=== PATIENT | female | born 1940 | race Caucasian/White ===

== ENCOUNTER → 2017-08-17 | Outpatient (CLI) | payer MEDICARE, OTHER ==
[~2017-08-17] MED LIST: ALEN1TAB3 PO; ASPI-1471 PO; BLOO-1775 MC; BLOO1STR16 MC; CALC600T72 PO; CIPR-212 PO; COMODPT OD; COMODPT OU; CYAN25004 PO; DAR100 PO; ESC10 PO; ESCI10TA8 PO; FAM20 PO; FERR325T24 PO; FLU45SYR25 IM ONLY; FLU60VIA29 IM; GLIM2TAB43 PO; GOLYTE PO; LANC-1295 MC; LEV500 PO; LOR5/325 PO; MECL12.5 PO; MECL25TA9 PO; METF-420 PO; MOX400 PO; MULT-1350 PO; NITR-105 PO; OMEG-28 PO; PHEN118S5 PO; PHENA200 PO; PIOG45TA18 PO; PNEU0.5D3 IM; PROM-110 PO; ROSU10TA13 PO; ROSU20TA23 PO; SIMV-44 PO; SITA1TAB17 PO; SITA1TBM4 PO; VAL80 PO; VALS160T22 PO
== END ==
LOC: SPU 09:21
PROVIDERS: ATTEND Emergency Medicine
DX: E11.9 Type 2 diabetes mellitus without complications (principal)
CPT/HCPCS: 36415; 83036

== ENCOUNTER → 2017-09-14 | Outpatient (CLI) | payer MEDICARE, OTHER ==
[2017-09-14 11:50] LABS: LDL CHOLESTEROL 46 mg/dl
== END ==
LOC: LAB 11:01
PROVIDERS: ATTEND Internal Medicine
DX: I35.0 Nonrheumatic aortic (valve) stenosis (principal); I51.7 Cardiomegaly; I51.9 Heart disease, unspecified; E78.00 Pure hypercholesterolemia, unspecified
CPT/HCPCS: 36415; 82040; 82247; 82310; 82374; 82435; 82465; 82565; 82947; 83718; 84075; 84132; 84155; 84295; 84450; 84460; 84478; 84520

== ENCOUNTER 2017-09-22 12:44 | Outpatient (RCR) | payer MEDICARE, OTHER ==
[2017-07-13 09:22] VITALS: BP 124/70
[2017-08-17 09:27] VITALS: BP 118/66
[2017-08-17] MEDS: CYANOCOBALAMIN 1000MCG/ML VIAL IM ONLY PRN (09:37)
[2017-09-18 08:55] VITALS: BP 136/70
[2017-09-18 09:14] LABS: PLATELET COUNT, AUTOMATED 293 K/uL (150-450)
[~2017-09-22 12:44] MED LIST changes: +CYANOCOBALAMIN 1000MCG/ML VIAL IM ONLY ONE
[2017-09-22 12:59] VITALS: BP 135/71
[2017-09-22] MEDS: CYANOCOBALAMIN 1000MCG/ML VIAL IM ONLY PRN (13:06)
--- NOTE | 2017-09-25 03:37 | ONCOLOGY FOLLOW UP NOTE ---
EVENT DATE: September 22, 2017 DIAGNOSES 1. Iron deficiency anemia. 2. Vitamin B12 deficiency. 3. Hypertension. 4. Type 2 diabetes. CHIEF COMPLAINT The patient is here today for followup of her iron deficiency and vitamin B12 deficiency with anemia. HEMATOLOGY HISTORY Patient is a 77-year-old female who was recently diagnosed with anemia. She has been seen by Dr. Caputo who did a thorough workup for her anemia, which showed low vitamin B12 at 154 and iron deficiency anemia with serum ferritin 10 , serum iron 23, TIBC 454 and iron saturation 5.1%. Her serum folate was normal at 20.4. Her CBC showed a white count of 5.1, hemoglobin 10.1, hematocrit 31.1, platelets 338,000 and MCV 78.8. Patient has been referred to Dr. Chavez, who did a colonoscopy and EGD, done on November 30, 2016. Her EGD and colonoscopy did not reveal any polyps or a bleeding source in the gastrointestinal tract. 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 Duodenal biopsy and GE junction biopsy without diagnostic abnormality. Patient started treatment with oral iron and oral vitamin B12 supplement, but since she started on oral iron, although she is using only one pill a day, the patient has had about four bowel movements daily since then. Repeat CBC showed white count 5.2, hemoglobin 10.7, hematocrit 33.3, platelets 374,000. Anti-intrinsic factor antibody and antiparietal cell antibody both came back negative. Celiac disease antigen screen came back normal. HISTORY OF PRESENT ILLNESS Patient is here today for followup of her anemia due to iron deficiency and vitamin B12 deficiency. Louann is doing fine currently. She was diagnosed with aortic valve sclerosis, and the patient is going to see her barn operator very soon. She has occasional diarrhea. Other than that, she is doing well. PAST MEDICAL HISTORY 1. Hyperlipidemia. 2. Hypertension. 3. Aortic stenosis. 4. Osteopenia. 5. Anxiety/depression. 6. Type 2 diabetes. PAST SURGICAL HISTORY 1. She had hysterectomy, but her ovaries are intact. 2. She had colon cancer for pre-cancer polyps in 1940s. 3. She had cholecystectomy. FAMILY HISTORY Mother had multiple myeloma. SOCIAL HISTORY Patient is with two children. 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 Denies any abuse of tobacco, alcohol or drugs. CURRENT MEDICATIONS 1. Rosuvastatin calcium 10 mg two tablets daily. 2. Aspirin 81 mg daily. 3. Escitalopram 10 mg daily. 4. Diovan 160 mg daily. 5. Janumet one tablet twice daily. 6. Combigan eyedrops one drop twice daily. ALLERGIES No known drug allergies. REVIEW OF SYSTEMS CONSTITUTIONAL: No appetite or weight change. No fever, chills or sweating. No recent infection. HEENT: Ears: No tinnitus or hearing problem. Nose: No nasal discharge or epistaxis. Throat: No sore throat or mouth ulcers. Eyes: No diplopia or visual changes. RESPIRATORY: No shortness of breath. Some cough with little phlegm. No expectoration or hemoptysis. CARDIOVASCULAR: No chest pain, orthopnea, or paroxysmal nocturnal dyspnea (PND) . No edema. No palpitations. GASTROINTESTINAL: She has occasional diarrhea. GENITOURINARY: No hematuria or dysuria. MUSCULOSKELETAL: She has been pain around the ankle occasionally. NEUROLOGICAL: No tingling or numbness in the hands or feet. No headaches or convulsions. HEMATOLOGIC/LYMPHATIC: No bleeding or easy bruising. No weakness or fatigue. No enlarged lymph nodes. SKIN: No skin rash or lumps. PSYCHIATRIC: No anxiety or depression. PHYSICAL EXAMINATION GENERAL: Looks stable. Well-developed, well-nourished, and in no acute distress. VITAL SIGNS: Blood pressure 135/71, pulse 75 per minute, respirations 17 per minute, temperature 97.2, pulse ox 97% on room air. HEENT: Head: Atraumatic. No sinus tenderness to palpation. Eyes: No icterus or conjunctivitis. Mouth and throat: No oral thrush or mucositis. NECK: Supple. No cervical or supraclavicular lymphadenopathy. LUNGS: Clear to auscultation and percussion bilaterally. HEART: Regular rate and rhythm. No gallops, murmurs, clicks or rubs. ABDOMEN: Soft and lax. No tenderness. No hepatosplenomegaly. No masses. EXTREMITIES: No cyanosis, clubbing or edema. LYMPHATICS: No peripheral lymphadenopathy. NEUROLOGICAL: Conscious, alert and oriented times three. No focal motor or sensory deficits. PSYCHIATRIC: Mood and affect appear normal. SKIN: No skin rash, bruise or purpuric eruption. DIAGNOSTIC DATA CBC showed a white count of 4.8, hemoglobin 12.6, hematocrit 36.2, platelets 293 ,000. Chem panel showed sodium 136, blood sugar 176, AST 50, ALT 66. Serum ferritin 99, TIBC 275, iron saturation 36%, and ferritin 69. ASSESSMENT 1. Iron deficiency anemia with normal colonoscopy and EGD without bleeding source. Celiac panel came back negative. Patient was unable to tolerate oral iron supplementation and for this reason she received Injectafer 750 mg weekly for two weeks in December 2016 with resolution of her iron deficiency. Her current iron studies are totally normal. There is no indication of any intervention at the moment. The patient will return in three months with CBC, iron studies with ferritin at that time. 2. Vitamin B12 deficiency. Patient's initial B12 level was 154. Patient currently on vitamin B12 supplement 1000 mcg every month. I will continue the same. Patient was advised to continue that the rest of her life. 2. Hypertension, on treatment. 3. Type 2 diabetes, on treatment. PLAN 1. Continued followup. 2. The patient to return in three months with CBC, iron studies with ferritin. 3. Continue B12 shots 1000 mcg every month. 4. Patient is to contact us for any new concerns or complaints. DEBO
== END 2017-10-10 ==
LOC: SPU 12:44
PROVIDERS: ATTEND Internal Medicine Hematology
DX: D50.9 Iron deficiency anemia, unspecified (principal); E55.9 Vitamin D deficiency, unspecified; D51.9 Vitamin B12 deficiency anemia, unspecified
CPT/HCPCS: 36415; 82728; 83036; 83540; 83550; 85025; 96372; G0463; J3420; 82040; 82247; 82310; 82374; 82435; 82565; 82947; 84075; 84132; 84155; 84295; 84450; 84460; 84520; 99212

== ENCOUNTER 2017-10-19 19:11 | Emergency (ER) | payer MEDICARE, OTHER ==
[~2017-10-19 19:11] MED LIST changes: +CLOP75TA PO; -CYANOCOBALAMIN 1000MCG/ML VIAL IM ONLY ONE
--- NOTE | 2017-10-19 19:17 | ER Report ---
History and Physical Time Seen By MD: 19:16 HPI/ROS CHIEF COMPLAINT: palpitations, irregular heart beats. HISTORY OF PRESENT ILLNESS: This is a 77 year old female. She has a history of a recent valvular repair, done by intravascular access. Since then she has been having noticeable palpitations. She has never really noted them previously. These are very disconcerting and she is worried that her heart is going to stop. She is here with a friend who suggested that she come here for evaluation , although she was thinking that they needed to go to [facility] for evaluation. She has no chest pain. She has no shortness of breath. She has started Plavix in addition to aspirin. She is taking Diovan from blood pressure. She has had a couple of episodes of dizziness which were very brief over the last week. She has no recent illness, fevers/chills, nausea or vomiting. No headache or vision changes. No problems with bowels or urination. No abdominal pain. Allergies: Coded Allergies: codeine (Verified Allergy, Intermediate, NAUSEA, 11/23/16) Home Meds Active Scripts Metoprolol Tartrate (METOPROLOL TARTRATE) 25 Mg Tablet, 1 TAB PO BID, #30 TAB 0 Refills Prov:ABHINAV NEFF MD 10/19/17 Glimepiride (GLIMEPIRIDE) 2 Mg Tablet, 1 TAB PO QDAY, #90 TAB 4 Refills Prov:PAULINO RAMOS MD 08/29/17 Sitagliptin Phos/Metformin Hcl (JANUMET 50-1,000 MG TABLET) 1 Each Tablet, 1 TAB PO BID, #180 TAB 4 Refills Prov:PAULINO RAMOS MD 08/29/17 Escitalopram Oxalate (ESCITALOPRAM OXALATE) 10 Mg Tablet, 10 MG PO QDAY, #90 TAB 1 Refill Prov:PAULINO RAMOS MD 06/26/17 Rosuvastatin Calcium (CRESTOR) 20 Mg Tablet, 1 TAB PO QDAY, #90 TAB 2 Refills Prov:PAULINO RAMOS MD 03/29/17 Blood Sugar Diagnostic (FREESTYLE LITE TEST STRIPS) 1 Each Strip, 1 EACH MC TID , #100 STRIP 12 Refills Test glucose TID. Test fasting glucose qam. Test once in the afternoon and again in the evening. Prov:PAULINO RAMOS MD 01/04/17 Lancets (FREESTYLE LANCETS) 1 Each Each, EACH MC TID, #100 12 Refills Test TID. Test fasting sugar every morning. Test blood sugar in the afternoon and again in the evening. Prov:PAULINO RAMOS MD 01/04/17 Blood-Glucose Meter (FREESTYLE LITE METER) 1 Each Kit, EACH MC TID, #1 Test glucose TID. Test fasting every morning. Test again in the afternoon and evening. Prov:PAULINO RAMOS MD 01/04/17 Valsartan (DIOVAN) 160 Mg Tablet, 1 TAB PO DAILY, #90 TAB 4 Refills Prov:PAULINO RAMOS MD 12/28/16 Brimonidine/Timolol (COMBIGAN EYE DROPS) 1 Drop Drop, 1 DROP OU BID, #0 DROP Prov:PAULINO RAMOS MD 03/03/16 Reported Medications Loperamide Hcl (LOPERAMIDE) 2 Mg Tablet, 4 MG PO 10/19/17 Clopidogrel Bisulfate (CLOPIDOGREL) 75 Mg Tablet, 1 TAB PO QDAY, TAB 10/16/17 Aspirin (ASPIR 81) 81 Mg Tablet.dr, 1 TAB PO QDAY, TAB 11/07/16 Reviewed Nurses Notes: Yes Hx Smoking: No Smoking Status: Never Smoker Hx Alcohol Use: No Constitutional Vital Sign - Last 24 Hours 10/19/17 10/19/17 10/19/17 10/19/17 19:19 19:19 19:26 19:26 Pulse 80 80 Resp 18 18 B/P (MAP) 137/78 (97) 137/78 (97) Pulse Ox 94 94 10/19/17 10/19/17 10/19/17 10/19/17 19:29 19:29 19:40 19:40 B/P (MAP) 186/89 (121) 186/89 (121) 146/63 (90) 146/63 (90) 10/19/17 10/19/17 10/19/17 10/19/17 19:41 19:41 19:56 19:56 Pulse 70 70 ? Resp 13 13 Pulse Ox 94 94 10/19/17 10/19/17 10/19/17 10/19/17 20:11 20:11 20:19 20:19 Pulse 91 91 Resp 12 12 B/P (MAP) 153/93 (113) 153/93 (113) Pulse Ox 98 98 10/19/17 10/19/17 10/19/17 10/19/17 20:26 20:26 20:40 20:40 Pulse 92 92 Resp 13 13 B/P (MAP) 154/83 (106) 154/83 (106) Pulse Ox 93 93 10/19/17 10/19/17 10/19/17 10/19/17 20:56 20:56 21:01 21:16 Pulse 91 91 84 77 Resp 11 11 Pulse Ox 95 95 10/19/17 21:21 Pulse 70 Resp 10 Physical Exam General Appearance: The patient is alert. Anxious. Eyes: Pupils are equal, round. No pallor, injection or icterus. ENT: Mucous membranes are moist. Normal oral mucosa. Normal tympanic membranes and canals. Neck: Supple and non tender. Respiratory: Lungs are clear to auscultation. Cardiovascular: Irregularly irregular rhythm, ranging from 85-110 on monitor. Appears to be frequent PVCs and PACs on monitor. No murmurs, gallops or rubs. Normal capillary refill. No edema. Gastrointestinal: Abdomen is soft and non tender. Nondistended. Normal active bowel sounds. Neurological: Alert and oriented x3. No focal weakness or numbness. Skin: Warm and dry. DIFFERENTIAL DIAGNOSIS: After history and physical exam, differential diagnosis was considered for a patient with palpitations that appear to be frequent PAC and PVCs. Medical Decision Making Data Points Result Diagram: 10/19/17192810/19/171928 Laboratory Hematology Test 10/19/17 19:29 Red Blood Count 4.12 M/uL (4.17-5.56) Mean Corpuscular Volume 86.2 fL (80.0-96.0) Mean Corpuscular Hemoglobin 30.8 pg (26.0-33.0) Mean Corpuscular Hemoglobin Concent 35.7 g/dL (32.0-36.0) Red Cell Distribution Width 13.5 % (11.5-14.5) Mean Platelet Volume 7.6 fL (7.2-11.1) Neutrophils (%) (Auto) 60.0 % (39.4-72.5) Lymphocytes (%) (Auto) 30.2 % (17.6-49.6) Monocytes (%) (Auto) 8.5 % (4.1-12.4) Eosinophils (%) (Auto) 0.7 % (0.4-6.7) Basophils (%) (Auto) 0.6 % (0.3-1.4) Nucleated RBC Relative Count (auto) 0.0 /100WBC Neutrophils # (Auto) 3.6 K/uL (2.0-7.4) Lymphocytes # (Auto) 1.8 K/uL (1.3-3.6) Monocytes # (Auto) 0.5 K/uL (0.3-1.0) Eosinophils # (Auto) 0.0 K/uL (0.0-0.5) Basophils # (Auto) 0.0 K/uL (0.0-0.1) Nucleated RBC Absolute Count (auto) 0.00 K/uL Sodium Level 137 mmol/L (137-145) Potassium Level 3.7 mmol/L (3.5-5.0) Chloride Level 99 mmol/L (98-107) Carbon Dioxide Level 27 mmol/L (22-31) Blood Urea Nitrogen 11 mg/dl (7-18) Creatinine 0.70 mg/dl (0.52-1.04) Glomerular Filtration Rate Calc > 60.0 Random Glucose 131 mg/dl (75-110) Calcium Level 9.4 mg/dl (8.4-10.2) Total Bilirubin 0.5 mg/dl (0.2-1.3) Aspartate Amino Transf (AST/SGOT) 19 U/L (0-35) Alanine Aminotransferase (ALT/SGPT) 25 U/L (0-56) Alkaline Phosphatase 85 U/L (0-126) Troponin I 0.042 ng/ml B-Type Natriuretic Peptide 106 pg/ml (0-100) Total Protein 7.1 gm/dl (6.3-8.2) Albumin 4.0 g/dl (3.5-5.0) Chemistry Test 10/19/17 19:29 White Blood Count 6.1 k/uL (4.5-11.0) Red Blood Count 4.12 M/uL (4.17-5.56) Hemoglobin 12.7 g/dL (12.0-16.0) Hematocrit 35.5 % (34.0-47.0) Mean Corpuscular Volume 86.2 fL (80.0-96.0) Mean Corpuscular Hemoglobin 30.8 pg (26.0-33.0) Mean Corpuscular Hemoglobin Concent 35.7 g/dL (32.0-36.0) Red Cell Distribution Width 13.5 % (11.5-14.5) Platelet Count 231 K/uL (150-450) Mean Platelet Volume 7.6 fL (7.2-11.1) Neutrophils (%) (Auto) 60.0 % (39.4-72.5) Lymphocytes (%) (Auto) 30.2 % (17.6-49.6) Monocytes (%) (Auto) 8.5 % (4.1-12.4) Eosinophils (%) (Auto) 0.7 % (0.4-6.7) Basophils (%) (Auto) 0.6 % (0.3-1.4) Nucleated RBC Relative Count (auto) 0.0 /100WBC Neutrophils # (Auto) 3.6 K/uL (2.0-7.4) Lymphocytes # (Auto) 1.8 K/uL (1.3-3.6) Monocytes # (Auto) 0.5 K/uL (0.3-1.0) Eosinophils # (Auto) 0.0 K/uL (0.0-0.5) Basophils # (Auto) 0.0 K/uL (0.0-0.1) Nucleated RBC Absolute Count (auto) 0.00 K/uL Glomerular Filtration Rate Calc > 60.0 Calcium Level 9.4 mg/dl (8.4-10.2) Total Bilirubin 0.5 mg/dl (0.2-1.3) Aspartate Amino Transf (AST/SGOT) 19 U/L (0-35) Alanine Aminotransferase (ALT/SGPT) 25 U/L (0-56) Alkaline Phosphatase 85 U/L (0-126) Troponin I 0.042 ng/ml B-Type Natriuretic Peptide 106 pg/ml (0-100) Total Protein 7.1 gm/dl (6.3-8.2) Albumin 4.0 g/dl (3.5-5.0) EKG/Imaging EKG Interpretation 12 lead EKG: Rhythm: Sinus rhythm, frequent PACs and PVCs. Joseph: normal ST segments: normal Monitor Interpretation: Other (rhythm strip shows periods of time with a normal narrow complex rhythm with very few PVCs and at other times very frequent PVCs.) Imaging 2 VIEWS CHEST INDICATION: Weird feeling in the chest. Heart valve surgery on Monday. Irregular heartbeat. COMPARISON: 09/29/2015. FINDINGS: Cardiomediastinal silhouette and pulmonary vessels within normal limits. Valve replacement changes. There is no focal infiltrate or lobar consolidation. There is no pneumothorax or pleural effusion. No nodule. There is scalloping of both hemidiaphragms which are unchanged. Upper abdomen is unremarkable. No acute bony abnormality. IMPRESSION: 1. No acute cardiopulmonary process. Report Dictated By: Rick Fields at 10/19/2017 8:17 PM ED Course/Re-evaluation Clinical Indication for ER IV: IV Access ED Course After evaluation, labs were obtained. Imaging and EKG as noted above. This appears to be a sinus rhythm with frequent PVCs, occasionally returning to a normal rhythm with very few. Very noticeable that when she gets anxious or upset , the PVCs increase in their frequency. I called and spoke with cardiology and reviewed her labs and EKG and rhythm strip findings. We are going to go ahead and start her on metoprolol 25 mg twice a day until she sees her methods analyst data processing next week on Monday. Decision to Disposition Date: Oct 19, 2017 Decision to Disposition Time: 21:22 Depart Departure Latest Vital Signs Vital Signs Date Time Temp Pulse Resp B/P (MAP) Pulse Ox O2 Delivery O2 Flow Rate FiO2 10/19/17 21:21 70 10 10/19/17 20:56 95 10/19/17 20:40 154/83 (106) Impression: Primary Impression: Premature ventricular contraction Additional Impression: Premature atrial contractions Condition: Improved Disposition: HOME OR SELF-CARE Referrals: PAULINO RAMOS MD (PCP) New Scripts Metoprolol Tartrate (METOPROLOL TARTRATE) 25 Mg Tablet 1 TAB PO BID, #30 TAB 0 Refills Prov: ABHINAV NEFF MD 10/19/17 Patient Instructions: Premature Atrial Contractions (ED), Premature Ventricular Contractions (DC) Additional Instructions: Take Metoprolol 25mg tablets twice a day (one in the morning and one at night). Keep taking your other medications. Keep your appointment with Dr. Cid. Return to the ER for shortness of breath or chest pain. Problem Qualifiers ABHINAV NEFF MD Oct 19, 2017 19:17
--- NOTE | 2017-10-19 19:26 | EKG ---
[place] [facility] [place]IENT NAME: FLACO WATSON : [id number] MR: [id number] V: [id number] EXAM DATE: ORDERING PHYSICIAN: ABHINAV NEFF TECHNOLOGIST: Kole Yeager Reason : Blood Pressure : / mmHG Vent. Rate : 093 BPM Atrial Rate : 066 BPM P-R Int : 000 ms QRS Dur : 132 ms QT Int : 422 ms P-R-T Axes : 000 015 117 degrees QTc Int : 524 ms Sinus rhythm with frequent and consecutive premature ventricular complexes and fusion complexes Nonspecific intraventricular block Possible Lateral infarct , age undetermined Abnormal ECG When compared with ECG of 29-SEP-2015 11:08, premature ventricular complexes are now present Confirmed by KALEE KAUR ([id number]) on 10/20/2017 6:44:20 AM Referred By: Confirmed By:KALEE KAUR
[2017-10-19 19:43] LABS: PLATELET COUNT, AUTOMATED 231 K/uL (150-450)
--- NOTE | 2017-10-19 20:24 | RADIOLOGY IMAGING REPORT ---
FACILITY: [facility] - [place] PATIENT NAME: Louann Quigley : 1940 MR: [id number] V: [id number] EXAM DATE: ORDERING PHYSICIAN: ABHINAV NEFF TECHNOLOGIST: Location: [facility] Patient: Louann Quigley : 1940 Visit/Account:[id number] Date of Sevice: 10/19/2017 2 VIEWS CHEST INDICATION: Weird feeling in the chest. Heart valve surgery on Monday. Irregular heartbeat. COMPARISON: 09/29/2015. FINDINGS: Cardiomediastinal silhouette and pulmonary vessels within normal limits. Valve replacement changes. There is no focal infiltrate or lobar consolidation. There is no pneumothorax or pleural effusion. No nodule. There is scalloping of both hemidiaphragms which are unchanged. Upper abdomen is unremarkable. No acu te bony abnormality. IMPRESSION: 1. No acute cardiopulmonary process. Report Dictated By: Rick Fields at 10/19/2017 8:17 PM Report E-Signed By: Rick Fields at 10/19/2017 8:20 PM WSN:[id number]
[2017-10-19 20:40] VITALS: BP 154/83
[2017-10-19] MEDS ORDERED: LOPE-111 PO (21:06)
[2017-10-19] MEDS ORDERED: METO25TA93 PO (21:25)
[2017-10-19] MEDS ORDERED: METOPROLOL TART 50 MG TAB PO ONE (21:25)
== END 2017-10-19 21:37 | disposition home or self-care (01) ==
LOC: ER 19:22
DX: I49.3 Ventricular premature depolarization (principal); I49.1 Atrial premature depolarization; R94.31 Abnormal electrocardiogram [ECG] [EKG]
CPT/HCPCS: 71046; 83880; 84484; 85025; 93005; 99284; A9270; 82040; 82247; 82310; 82374; 82435; 82565; 82947; 84075; 84132; 84155; 84295; 84450; 84460; 84520

== ENCOUNTER → 2017-10-30 | Outpatient (CLI) | payer MEDICARE, OTHER ==
[~2017-10-30] MED LIST changes: +LOPE-111 PO; +METO25TA93 PO
--- NOTE | 2017-10-31 17:40 | RT HOLTER TEST ---
[place] [facility] [place] FLACO WATSON : [id number] MR: [id number] V: [id number] EXAM DATE: ORDERING PHYSICIAN: JAE MCALLISTER TECHNOLOGIST: FANNIE Hook-up date: 2017-10-30 09:53:00 Duration: 24:10:00 Test Indications: PALPITATIONS Medications: N/A 023297 QRS complexes 30 Ventricular ectopics which represent <1 % of total QRS comp. 4175 Supraventricular ectopics which represent 3 % of total QRS comp. * Paced QRS complexes which represent % of total QRS comp. VENTRICULAR ECTOPY 30 Isolated 0 Bigeminal Cycles 0 Couplets 0 Runs 0 Beats in Runs * Beats LONGEST at * BPM at :: -- * Beats FASTEST at * BPM at :: -- SUPRAVENTRICULAR ECTOPY 3602 Isolated 209 Couplets 48 Runs 155 Beats in Runs 7 Beats LONGEST at 134 BPM at 13:44:18 2017-10-30 3 Beats FASTEST at 178 BPM at 08:25:28 2017-10-31 HEART RATES 57 MIN at 04:38:36 2017-10-31 74 AVG 135 MAX at 05:10:46 2017-10-31 LONGEST RR 1.336 secs at 04:39:49 2017-10-31 S-T LEVELS Channel 1 -12.800 mm MIN at 09:53:00 2017-10-30 -12.800 mm MAX at 09:53:00 2017-10-30 Channel 2 -12.800 mm MIN at 09:53:00 2017-10-3012.800 mm MAX at 09:53:00 2017-10-30 Channel 3 -12.800 mm MIN at 09:53:00 2017-10-30 -12.800 mm MAX at 09:53:00 2017-10-30 Rare ventricular ectopy. No couplets, triplets, or runs. Frequent supraventricular ectopy with many couplets and several short runs, many of which appear to b e atrial fibrillation. No pauses were recorded. Inverted/biphasic T waves were noted periodically throughout recording. Confirmed by LALI KEATING ([id number]) on 10/31/2017 5:39:32 PM Referred By: Overread By: LALI KEATING
== END ==
LOC: RESP 01:37
PROVIDERS: ATTEND Internal Medicine
DX: R00.2 Palpitations (principal)
CPT/HCPCS: 93225; 93226

== ENCOUNTER 2017-12-01 15:00 | Outpatient (RCR) | payer MEDICARE, OTHER ==
[2017-11-16 12:17] VITALS: BP 112/62
[2017-11-16 12:18] VITALS: BP 100/60
--- NOTE | 2017-11-16 13:17 | CARDIAC REHAB PLAN OF CARE ---
Physician: Kerri COOPER Patient is being seen: Kev Jackson Medical Diagnosis: TAVR Date of Initial Evaluation: 11/16/2017 SHORT TERM GOALS Short Term Goals Due Date: 12/16/17 Short Term Goals: 77 y/o female phase II patient comes to cardiac rehab after TAVR procedure on October 10, 2017. PMhx includes type 2 diabetes (15 years), hypertension (20 years), and hyperlipidemia (20 years). Patients aortic valve murmur diagnosis 20 years ago. Patient otherwise healthy and orthopedically sound to start the phase II exercise program. Patient previously active with consistent exercise, but for the last 10 years has not exercised much. During the evaluation of the 6-minute walk test the patient maintained SPO2 of 95-97% on room air, and the motorcycle police officer showed a NSR without ectopy and rates reaching 87. RPE started at 2 and was 5 during the last minute of the test. Patient's preference will be the treadmill, and patient introduced to the rehab chair for weight resistance training. Short term goals are to maintain consistent attendance for cardiac rehab class and include off day cardio exercise to reach a minimum goal of 150 minutes of a moderate level (3.0-6.0 METs) each week, along with weight resistance exercise at least twice a week. Patient also needs to adjust current diet to a diabetic friendly, heart healthy diet. Patient is 5'5" and 149 pounds which is at the high level within the BMI healthy weight guidelines. Short Term Goals Met: Short Term Goals Not Met Due To: ALF GOALS Skilled Nursing Goal Due Date: 01/16/18 Coat Operator Insulator Goals: detention goals will be to remain consistent with exercise protocol and dietary changes. Coat Operator Insulator Goals Met: Coat Operator Insulator Goals Not Met Due To: PATIENT'S GOALS Patient Goals Due Date: 12/16/17 Patient Goals: Patient goals are to learn and apply healthy recovery from TAVR procedure and to gain confidence in heart healthy to remain active. Patient Goals Met: Patient Goals Not Met Due To: Cardiac Rehabilitation Plan of Care Comment: Cardiac rehab staff will monitor, record, and evaluate vitals, ECG, and exercise results to provide the best plan of care for the patient throughout the 36 visit phase II program. CR staff will educate and motivate the patient during visits for rehab. DEBO
[2017-11-17 17:03] VITALS: BP 100/60
[2017-11-17 17:05] VITALS: BP 100/58
[2017-11-20 16:28] VITALS: BP 126/62
[2017-11-20 16:29] VITALS: BP 102/56
[2017-11-22 16:31] VITALS: BP_SYST 106; BP_SYST 124; BP_DIAS 58; BP_DIAS 66
[2017-11-24 16:31] VITALS: BP 88/44
[2017-11-24 16:32] VITALS: BP 84/50
[2017-11-27 17:15] VITALS: BP 117/62
[2017-11-27 17:17] VITALS: BP 84/52
[~2017-12-01 15:00] MED LIST changes: +DIPH0.5D12 IM
[2017-12-01 16:26] VITALS: BP 118/66
[2017-12-01 16:27] VITALS: BP 120/70
--- NOTE | 2017-12-21 15:48 | CARDIAC REHAB PLAN OF CARE ---
Physician: Kerri COOPER Patient is being seen: Kev Jackson Medical Diagnosis: TAVR Date of Initial Evaluation: November 16, 2017 SHORT TERM GOALS Short Term Goals Due Date: 12/21/17 Short Term Goals: 77 y/o female phase II patient comes to cardiac rehab after TAVR procedure on October 10, 2017. PMhx includes type 2 diabetes (15 years), hypertension (20 years), and hyperlipidemia (20 years). Patients aortic valve murmur diagnosis 20 years ago. Patient otherwise healthy and orthopedically sound to start the phase II exercise program. Patient previously active with consistent exercise, but for the last 10 years has not exercised much. During the evaluation of the 6-minute walk test the patient maintained SPO2 of 95-97% on room air, and the teletypesetter monitor showed a NSR without ectopy and rates reaching 87. RPE started at 2 and was 5 during the last minute of the test. Patient's preference will be the treadmill, and patient introduced to the rehab chair for weight resistance training. Short term goals are to maintain consistent attendance for cardiac rehab class and include off day cardio exercise to reach a minimum goal of 150 minutes of a moderate level (3.0-6.0 METs) each week, along with weight resistance exercise at least twice a week. Patient also needs to adjust current diet to a diabetic friendly, heart healthy diet. Patient is 5'5" and 149 pounds which is at the high level within the BMI healthy weight guidelines. Short Term Goals Met: Patient has completed 7 visits for cardiac rehab and tolerates up to 50 minutes of a moderate level of cardio exercise along with weight resistance exercise. Patient has shown to complete a high level of exercise in duration and intensity level. Short Term Goals Not Met Due To: The last visit for cardiac rehab is December 01, 2017. ASSISTED GOALS Inserter Operator Goal Due Date: 02/20/18 Inserter Operator Goals: terminal makeup operator goals are to maintain that consistency of exercise, and consistency of a heart healthy diet. Inserter Operator Goals Met: Patient will be able to accomplish the exercise protocol goals, if she can remain consistent and reach that 150 minutes per week goal at a moderate level (3.0-6.0 METs). Inserter Operator Goals Not Met Due To: Patient needs to improve dietary adjustments to follow a heart healthy diet. PATIENT'S GOALS Patient Goals Due Date: 01/20/18 Patient Goals: Patient would like to gain confidence in heart health, and continue to remain active with improved endurance and strength. Patient Goals Met: Patient Goals Not Met Due To: Cardiac Rehabilitation Plan of Care Comment: Cardiac rehab staff will continue to monitor, record, and evaluate vitals, ECG, and exercise results to provide the best plan of care for the patient throughout the 36 visit, phase II program. CR staff will educate and motivate the patient during visits for rehab. DEBO
[2017-12-22] MEDS ORDERED: ESCI10TA8 PO (16:49)
== END 2017-12-01 18:00 | disposition home or self-care (01) ==
LOC: CARD 15:00
PROVIDERS: ATTEND Internal Medicine Cardiovascular Disease
DX: Z95.2 Presence of prosthetic heart valve (principal); E11.9 Type 2 diabetes mellitus without complications; I10 Essential (primary) hypertension; E78.5 Hyperlipidemia, unspecified; R01.1 Cardiac murmur, unspecified
CPT/HCPCS: 93798

== ENCOUNTER 2017-12-29 13:07 | Outpatient (RCR) | payer MEDICARE, OTHER ==
[2017-10-27] MEDS: CYANOCOBALAMIN 1000MCG/ML VIAL IM ONLY PRN (09:02)
[2017-10-27 09:07] VITALS: BP 119/67
[2017-11-24 08:45] VITALS: BP 100/53
[2017-11-24] MEDS: CYANOCOBALAMIN 1000MCG/ML VIAL IM ONLY PRN (08:45)
[2017-12-21 09:26] LABS: PLATELET COUNT, AUTOMATED 214 K/uL (150-450)
[2017-12-21 10:46] VITALS: BP 90/63
[2017-12-29 13:19] VITALS: BP 108/57
[2017-12-29 13:21] VITALS: BP 108/57
[2017-12-29] MEDS: CYANOCOBALAMIN 1000MCG/ML VIAL IM ONLY PRN (13:21)
--- NOTE | 2017-12-29 17:23 | ONCOLOGY FOLLOW UP NOTE ---
EVENT DATE: December 29, 2017 DIAGNOSES 1. Iron deficiency anemia. 2. Vitamin B12 deficiency. 3. Hypertension. 4. Type 2 diabetes. CHIEF COMPLAINT The patient is here today for followup of her iron deficiency and vitamin B12 deficiency with anemia. HEMATOLOGY HISTORY Patient is a 77-year-old female who was recently diagnosed with anemia. She has been seen by Dr. Caputo who did a thorough workup for her anemia, which showed low vitamin B12 at 154 and iron deficiency anemia with serum ferritin 10 , serum iron 23, TIBC 454 and iron saturation 5.1%. Her serum folate was normal at 20.4. Her CBC showed a white count of 5.1, hemoglobin 10.1, hematocrit 31.1, platelets 338,000 and MCV 78.8. Patient has been referred to Dr. Chavez, who did a colonoscopy and EGD, done on November 30, 2016. Her EGD and colonoscopy did not reveal any polyps or a bleeding source in the gastrointestinal tract. 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 Duodenal biopsy and GE junction biopsy without diagnostic abnormality. Patient started treatment with oral iron and oral vitamin B12 supplement, but since she started on oral iron, although she is using only one pill a day, the patient has had about four bowel movements daily since then. Repeat CBC showed white count 5.2, hemoglobin 10.7, hematocrit 33.3, platelets 374,000. Anti-intrinsic factor antibody and antiparietal cell antibody both came back negative. Celiac disease antigen screen came back normal. HISTORY OF PRESENT ILLNESS Patient is here today for followup of her anemia due to iron deficiency and vitamin B12 deficiency. She is doing fine currently. She is complaining of cough, diarrhea and pain in the legs sometimes. PAST MEDICAL HISTORY 1. Hyperlipidemia. 2. Hypertension. 3. Aortic stenosis. 4. Osteopenia. 5. Anxiety/depression. 6. Type 2 diabetes. PAST SURGICAL HISTORY 1. She had hysterectomy, but her ovaries are intact. 2. She had colon cancer for pre-cancer polyps in 1940s. 3. She had cholecystectomy. FAMILY HISTORY Mother had multiple myeloma. SOCIAL HISTORY Patient is with two children. She is retired from consulting database administrator, working at the [employer]. Denies any abuse of tobacco, alcohol or drugs. CURRENT MEDICATIONS 1. Rosuvastatin calcium 10 mg two tablets daily. 2. Aspirin 81 mg daily. 3. Escitalopram 10 mg daily. 4. Diovan 160 mg daily. 5. Janumet one tablet twice daily. 6. Combigan eyedrops one drop twice daily. ALLERGIES No known drug allergies. REVIEW OF SYSTEMS CONSTITUTIONAL: No appetite or weight change. No fever, chills or sweating. No recent infection. HEENT: Ears: No tinnitus or hearing problem. Nose: No nasal discharge or epistaxis. Throat: No sore throat or mouth ulcers. Eyes: No diplopia or visual changes. RESPIRATORY: No shortness of breath. The patient has some. No expectoration or hemoptysis. CARDIOVASCULAR: No chest pain, orthopnea, or paroxysmal nocturnal dyspnea (PND) . No edema. No palpitations. GASTROINTESTINAL: She has diarrhea. GENITOURINARY: No hematuria or dysuria. MUSCULOSKELETAL: She has pain in the legs. NEUROLOGICAL: No tingling or numbness in the hands or feet. No headaches or convulsions. HEMATOLOGIC/LYMPHATIC: No bleeding or easy bruising. No weakness or fatigue. No enlarged lymph nodes. SKIN: No skin rash or lumps. PSYCHIATRIC: No anxiety or depression. PHYSICAL EXAMINATION GENERAL: Looks stable. Well-developed, well-nourished, and in no acute distress. VITAL SIGNS: Blood pressure 88130, pulse 78 per minute, respirations 16 per minute, temperature 98, pulse ox 95% on room air. HEENT: Head: Atraumatic. No sinus tenderness to palpation. Eyes: No icterus or conjunctivitis. Mouth and throat: No oral thrush or mucositis. NECK: Supple. No cervical or supraclavicular lymphadenopathy. LUNGS: Clear to auscultation and percussion bilaterally. HEART: Regular rate and rhythm. No gallops, murmurs, clicks or rubs. ABDOMEN: Soft and lax. No tenderness. No hepatosplenomegaly. No masses. EXTREMITIES: No cyanosis, clubbing or edema. LYMPHATICS: No peripheral lymphadenopathy. NEUROLOGICAL: Conscious, alert and oriented times three. No focal motor or sensory deficits. PSYCHIATRIC: Mood and affect appear normal. SKIN: No skin rash, bruise or purpuric eruption. DIAGNOSTIC DATA CBC showed a white count of 5.7, hemoglobin 13.1, hematocrit 37, platelets 214, 000. Serum iron 115, TIBC 356, iron saturation 32.3, ferritin 52, which is down from 69. ASSESSMENT 1. Iron deficiency anemia with normal colonoscopy and EGD without bleeding source. Celiac panel came back negative. Patient was unable to tolerate oral iron pills, so she received Injectafer 750 mg weekly for two weeks in December 2016 , with resolution of her iron deficiency. Her current iron studies are totally normal. No indication of hematological intervention at the moment. I will see her again in four months, at that time with CBC, iron studies with ferritin.. 2. Vitamin B12 deficiency. Initial vitamin B12 level was 154. Patient currently on vitamin B12 supplement 1000 mcg every month. Will continue the same for lifelong. 2. Hypertension, on treatment. 3. Type 2 diabetes, on treatment. PLAN 1. Continue followup. 2. Continue vitamin B12 shots 1000 mcg every month. 3. Patient to return in four months with CBC, iron studies with ferritin. 4. Patient is to contact us for any new concern or complaints. MARTAD
== END 2018-01-24 ==
LOC: SPU 13:07
PROVIDERS: ATTEND Internal Medicine Hematology
DX: D50.9 Iron deficiency anemia, unspecified (principal); E55.9 Vitamin D deficiency, unspecified; D51.9 Vitamin B12 deficiency anemia, unspecified; I10 Essential (primary) hypertension; E11.9 Type 2 diabetes mellitus without complications
CPT/HCPCS: 36415; 82728; 83540; 83550; 85025; 96372; G0463; J3420; 99212

== ENCOUNTER → 2018-04-17 | Outpatient (CLI) | payer MEDICARE, OTHER ==
[~2018-04-17] MED LIST changes: +LOSA50TA74 PO; +ROS10 PO; -ROSU10TA13 PO; +ROSU10TA5 PO
== END ==
LOC: LAB 09:29
PROVIDERS: ATTEND Emergency Medicine
DX: I10 Essential (primary) hypertension (principal)
CPT/HCPCS: 36415; 82310; 82374; 82435; 82565; 82947; 84132; 84295; 84520

== ENCOUNTER 2018-04-26 09:28 | Outpatient (RCR) | payer MEDICARE, OTHER ==
[2018-02-01 09:33] VITALS: BP 103/63
[2018-02-01] MEDS: CYANOCOBALAMIN 1000MCG/ML VIAL IM ONLY PRN (09:38)
[2018-03-08 09:29] VITALS: BP 128/66
[2018-03-08] MEDS: CYANOCOBALAMIN 1000MCG/ML VIAL IM ONLY PRN (09:36)
[2018-04-17] MEDS: CYANOCOBALAMIN 1000MCG/ML VIAL IM ONLY PRN (10:03)
[2018-04-26 09:31] VITALS: BP 114/62
[2018-04-26 09:45] LABS: PLATELET COUNT, AUTOMATED 237 K/uL (150-450)
== END 2018-05-01 ==
LOC: SPU 09:28
PROVIDERS: ATTEND Internal Medicine Hematology
DX: D50.9 Iron deficiency anemia, unspecified (principal); E55.9 Vitamin D deficiency, unspecified; D51.9 Vitamin B12 deficiency anemia, unspecified
CPT/HCPCS: 36415; 82728; 83540; 83550; 85025; 96372; J3420; 82310; 82374; 82435; 82565; 82947; 84132; 84295; 84520

== ENCOUNTER → 2018-05-09 | Outpatient (CLI) | payer MEDICARE, OTHER ==
[~2018-05-09] MED LIST changes: +FLU180SY11 IM; +FLU60VIA41 IM
== END ==
LOC: LAB 15:49
PROVIDERS: ATTEND Emergency Medicine
DX: E11.9 Type 2 diabetes mellitus without complications (principal); M85.80 Other specified disorders of bone density and structure, unspecified site; E53.8 Deficiency of other specified B group vitamins
CPT/HCPCS: 36415; 82306; 82607; 83036

== ENCOUNTER → 2018-05-31 | Outpatient (CLI) | payer MEDICARE, OTHER ==
[~2018-05-31] MED LIST changes: +CHOL10005 PO; +CYAN1000 IJ; +LATA7.5D OD
--- NOTE | 2018-05-31 17:47 | RADIOLOGY IMAGING REPORT ---
FACILITY: [facility] [place] PATIENT NAME: Louann Quigley : 1940 MR: [id number] V: [id number] EXAM DATE: ORDERING PHYSICIAN: PAULINO RAMOS TECHNOLOGIST: Location: [facility] [place] Patient: Louann Quigley : 1940 Visit/Account:[id number] Date of Sevice: 05/31/2018 ARTERIAL BILAT LOWER EXT HISTORY: Bilateral leg pain, two months, right greater than left. COMPARISON: None. FINDINGS: On the right, triphasic waveform morphology without hemodynamically significant disease is noted in t he common femoral artery. Triphasic CT is seen throughout the SFA with mild tandem disease noted on grayscale imaging. This appears less than 50%. Triphasic waveform is maintained throughout the popl iteal artery. The posterior tibial, peroneal and anterior tibial artery have multiphasic waveforms. There is a biphasic waveform with mild parvus tardus morphology of the anterior tibial artery. Dors derrek pedis is patent with a multiphasic waveform. On the left, duplex sonographic images demonstrate no evidence of hemodynamically significant disease in the inflow. Triphasic waveform is seen in the common femoral artery. Multiphasic waveform is no arcadio throughout the superficial femoral artery with a more biphasic waveform in its distal portion. S ubtle blunting is seen of the systolic acceleration curve at this point. Tandem disease is seen in t he popliteal artery which maintains a biphasic waveform morphology throughout. Multiphasic waveforms seen in the posterior tibial, peroneal, anterior tibial and dorsalis pedis arteries. IMPRESSION: 1. 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 Three-vessel runoff with evidence of mild to moderate disease in the anterior tibial ar son. Correlate with LEESA. 2. 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 Three-v essel runoff with findings indicative of mild to moderate disease in the anterior tibial artery. Cor relate with LEESA. Report Dictated By: Jose Angel Nance MD at 05/31/2018 5:37 PM Report E-Signed By: Jose Angel Nance MD at 05/31/2018 5:43 PM WSN:[email or web address]
== END ==
LOC: US 01:24
PROVIDERS: ATTEND Emergency Medicine
DX: I70.203 Unspecified atherosclerosis of native arteries of extremities, bilateral legs (principal)
CPT/HCPCS: 93925

== ENCOUNTER → 2018-06-21 | Outpatient (CLI) | payer MEDICARE, OTHER ==
--- NOTE | 2018-06-25 12:07 | RT HOLTER TEST ---
FACILITY: [facility] PATIENT NAME: FLACO WATSON : [id number] MR: [id number] V: [id number] EXAM DATE: ORDERING PHYSICIAN: PAULINO RAMOS TECHNOLOGIST: DEBI Hook-up date: 2018-06-21 16:23:00 Duration: 47:59:00 Test Indications: Medications: [id number] QRS complexes 57 Ventricular ectopics which represent <1 % of total QRS comp. 2472 Supraventricular ectopics which represent 1 % of total QRS comp. * Paced QRS complexes which represent % of total QRS comp. VENTRICULAR ECTOPY 55 Isolated 0 Bigeminal Cycles 1 Couplets 0 Runs 0 Beats in Runs * Beats LONGEST at * BPM at :: -- * Beats FASTEST at * BPM at :: -- SUPRAVENTRICULAR ECTOPY 2239 Isolated 44 Couplets 33 Runs 145 Beats in Runs 17 Beats LONGEST at 131 BPM at 05:11:11 2018-06-23 3 Beats FASTEST at 163 BPM at 09:59:40 2018-06-23 HEART RATES 58 MIN at 04:31:01 2018-06-23 78 AVG 90 MAX at 05:11:11 2018-06-23 LONGEST RR 1.256 secs at 15:31:41 2018-06-23 S-T LEVELS Channel 1 -12.800 mm MIN at 16:23:00 2018-06-21 -12.800 mm MAX at 16:23:00 2018-06-21 Sinus rhythm Premature ventricular complexes Premature supraventricular complexes Confirmed by KALEE KAUR ([id number]) on 06/25/2018 12:08:15 PM Referred By: Overread By: KALEE KAUR
== END ==
LOC: RESP 16:02
PROVIDERS: ATTEND Emergency Medicine
DX: I49.3 Ventricular premature depolarization (principal)
CPT/HCPCS: 93225; 93226

== ENCOUNTER → 2018-08-09 | Outpatient (RCR) | payer MEDICARE, OTHER ==
[2018-05-11 15:46] VITALS: BP 151/69
--- NOTE | 2018-05-12 20:17 | ONCOLOGY FOLLOW UP NOTE ---
EVENT DATE: May 11, 2018 DIAGNOSES 1. Iron deficiency anemia. 2. Vitamin B12 deficiency. 3. Hypertension. 4. Type 2 diabetes. CHIEF COMPLAINT The patient is here today for followup of her iron deficiency and vitamin B12 deficiency with anemia. HEMATOLOGY HISTORY Patient is a 77-year-old female who was recently diagnosed with anemia. She has been seen by Dr. Caputo who did a thorough workup for her anemia which showed low vitamin B12 at 154 and iron deficiency anemia with serum ferritin 10, serum iron 23, TIBC 454, and iron saturation 5.1%. Her serum folate was normal at 20.4. Her CBC showed a white count of 5.1, hemoglobin 10.1, hematocrit 31.1, platelets 338,000, and MCV 78.8. Patient had been referred to Dr. Chavez, who did a colonoscopy and EGD, done on November 30, 2016. Her EGD and colonoscopy did not reveal any polyps or a bleeding source in the gastrointestinal tract. 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 Duodenal biopsy and GE junction biopsy were without diagnostic abnormality. Patient started treatment with oral iron and oral vitamin B12 supplement. Since she started on oral iron, although she is using only one pill a day, the patient has had about four bowel movements daily since then. Repeat CBC showed white count 5.2, hemoglobin 10.7, hematocrit 33.3, platelets 374,000. Anti-intrinsic factor antibody and anti-parietal cell antibody both came back negative. Celiac disease antigen screen came back normal. HISTORY OF PRESENT ILLNESS Patient is here today for followup of her anemia due to iron deficiency and vitamin B12 deficiency. She is doing fine currently. She is complaining only of leg pains thought to be due to her cholesterol medicine which she stopped recently, and she felt better after that. PAST MEDICAL HISTORY 1. Hyperlipidemia. 2. Hypertension. 3. Aortic stenosis. 4. Osteopenia. 5. Anxiety/depression. 6. Type 2 diabetes. PAST SURGICAL HISTORY 1. She had hysterectomy, but her ovaries are intact. 2. She had colon surgery for precancerous polyps in her 40s. 3. She had cholecystectomy. FAMILY HISTORY Mother had multiple myeloma. SOCIAL HISTORY Patient is with two children. She is retired from data assistant, working at the [employer]. Denies any abuse of tobacco, alcohol, or drugs. CURRENT MEDICATIONS 1. Rosuvastatin calcium 10 mg two tablets daily. 2. Aspirin 81 mg daily. 3. Escitalopram 10 mg daily. 4. Diovan 160 mg daily. 5. Janumet one tablet twice daily. 6. Combigan eye drops one drop twice daily. ALLERGIES No known drug allergies. REVIEW OF SYSTEMS CONSTITUTIONAL: No appetite or weight change. No fever, chills, or sweating. No recent infection. HEENT: Ears: No tinnitus or hearing problem. Nose: No nasal discharge or epistaxis. Throat: No sore throat or mouth ulcers. Eyes: No diplopia or visual changes. RESPIRATORY: No shortness of breath. No cough, expectoration, or hemoptysis. CARDIOVASCULAR: No chest pain, orthopnea, or paroxysmal nocturnal dyspnea (PND). No edema. No palpitations. GASTROINTESTINAL: No nausea or vomiting. No diarrhea or constipation. No change in bowel movements. No heartburn or swallowing difficulties. No abdominal pain. No jaundice. No hematemesis, melena, or rectal bleeding. GENITOURINARY: No hematuria or dysuria. MUSCULOSKELETAL: She has leg pains thought to be due to her cholesterol pills. NEUROLOGICAL: No tingling or numbness in the hands or feet. No headaches or convulsions. HEMATOLOGIC/LYMPHATIC: No bleeding or easy bruising. No weakness or fatigue. No enlarged lymph nodes. SKIN: No skin rash or lumps. PSYCHIATRIC: No anxiety or depression. PHYSICAL EXAMINATION GENERAL: Looks stable. Well developed, well nourished, and in no acute distress. VITAL SIGNS: Blood pressure 151/69, pulse 75 per minute, respirations 16 per minute, temperature 97.1, pulse ox 97% on room air. HEENT: Head: Atraumatic. No sinus tenderness to palpation. Eyes: No icterus or conjunctivitis. Mouth and throat: No oral thrush or mucositis. NECK: Supple. No cervical or supraclavicular lymphadenopathy. LUNGS: Clear to auscultation and percussion bilaterally. HEART: Regular rate and rhythm. No gallops, murmurs, clicks, or rubs. ABDOMEN: Soft and lax. No tenderness. No hepatosplenomegaly. No masses. EXTREMITIES: No cyanosis, clubbing, or edema. LYMPHATICS: No peripheral lymphadenopathy. NEUROLOGICAL: Conscious, alert, and oriented times three. No focal motor or sensory deficits. PSYCHIATRIC: Mood and affect appear normal. SKIN: No skin rash, bruise, or purpuric eruption. DIAGNOSTIC DATA CBC showed white count 4.2, hemoglobin 11.8, hematocrit 33.6, platelets 237,000. Serum iron 82, TIBC 349, iron saturation 23.5%, and ferritin 48, which is down from 52. ASSESSMENT 1. Iron deficiency anemia with normal colonoscopy and esophagogastroduodenoscopy without bleeding source. Celiac panel came back negative. Patient was unable to tolerate oral iron pills, so she received Injectafer 750 mg weekly for two weeks in December 2016 with resolution of her iron deficiency. Her current iron studies are totally normal. Her ferritin is nearly stable. It is 48, down from 52 four months ago. I am planning to continue followup. I will see her again in three months with CBC and iron studies with ferritin. 2. Vitamin B12 deficiency. Initial vitamin B12 level was 154. She is currently on vitamin B12 shots 1000 mcg every month. Will continue the same. 3. Hypertension, on treatment. 4. Type 2 diabetes, on treatment. PLAN 1. Continue followup. 2. Continue vitamin B12 shots 1000 mcg every month. 3. Patient to return in three months with CBC and iron studies with ferritin. 4. Patient is to contact us for any new concerns or complaints. DEBO
[2018-05-17 09:06] VITALS: BP 112/54
[2018-06-18 08:58] VITALS: BP 91/57
[2018-06-18] MEDS: CYANOCOBALAMIN 1000MCG/ML VIAL IM ONLY PRN (08:58)
[2018-07-20 08:31] VITALS: BP 120/62
[2018-07-20] MEDS: CYANOCOBALAMIN 1000MCG/ML VIAL IM ONLY PRN (08:34)
[2018-08-06 09:06] LABS: PLATELET COUNT, AUTOMATED 217 K/uL (150-450)
[2018-08-06 09:13] VITALS: BP 129/67
[~2018-08-09] MED LIST changes: +ALPR-1 PO; +CYANOCOBALAMIN 1000MCG/ML VIAL IM ONLY ONE; -LOSA50TA74 PO; +LOSA50TA80 PO
[2018-08-09 09:15] VITALS: BP 150/69
--- NOTE | 2018-08-11 17:33 | ONCOLOGY FOLLOW UP NOTE ---
EVENT DATE: August 09, 2018 CHIEF COMPLAINT Followup for anemia. HISTORY OF PRESENT ILLNESS Patient is a 77-year-old female who was seen today in followup. She has been diagnosed with both iron deficiency and B12 deficiency anemia. Overall, she feels she is doing fairly well. She does note fatigue and often finds she sleeps some during the day. She denies significant shortness of breath. She is here to review her recent lab work. HEMATOLOGY HISTORY Patient is a 77-year-old female diagnosed with anemia. She was noted to have B12 deficiency with a B12 level of 154 and iron deficiency with a serum ferritin of 10, serum iron 23, and iron saturation 5%. Folate was normal. She underwent EGD and colonoscopy which showed no evidence of bleeding. 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 She began treatment with oral iron and oral B12 supplement. Anti-intrinsic factor antibody and anti-parietal cell antibody both were negative. Celiac disease screen was normal. She is receiving B12 injections monthly. MEDICAL HISTORY 1. Anemia. 2. Hyperlipidemia. 3. Hypertension. 4. Aortic stenosis. 5. Osteopenia. 6. Anxiety/depression. 7. Type 2 diabetes. SURGICAL HISTORY 1. Hysterectomy with ovaries intact. 2. Colon surgery for precancerous polyps in her 40s. 3. Cholecystectomy. 4. Valve replacement, September 2017. FAMILY HISTORY Mother had multiple myeloma. SOCIAL HISTORY Patient is . She has two grown children. She retired from the [employer]. She does not smoke, drink alcohol, or use illicit drugs. MEDICATIONS 1. Metoprolol 25 mg b.i.d. 2. Alprazolam p.r.n. 3. Glimepiride 0.5 mg daily. 4. Crestor 10 mg daily. 5. Lexapro 10 mg daily. 6. Janumet mg b.i.d. 7. Combigan eye drops. 8. Vitamin D3. 9. Aspirin 81 mg daily. ALLERGIES CODEINE. REVIEW OF SYSTEMS A 12-point review of systems is performed and is negative except as stated above. PHYSICAL EXAMINATION VITAL SIGNS: Weight 67.5 kg. BP 150/69, P 75, R 16, temp 97.2, O2 sat 95%. GENERAL: Patient is a well-developed, well-nourished female in no acute distress. HEAD: Normocephalic, atraumatic. EYES: Sclerae anicteric. MOUTH: Moist mucous membranes. LUNGS: Clear bilaterally. CARDIOVASCULAR: Heart rate regular, 75 per minute, without murmur, S3, or S4. EXTREMITIES: No edema. NEUROLOGIC: Nonfocal. LABORATORIES CBC on 08/06/18 showed a WBC of 5.4, hemoglobin 12.7, hematocrit 37.5, platelets 217,000. Serum iron 66, iron saturation 17%, ferritin 16. IMPRESSION AND PLAN The patient is a 77-year-old female with both iron deficiency and B12 deficiency anemia. Currently receiving B12 injections monthly. 1. Iron deficiency anemia. Hemoglobin is stable at 12.7, slightly improved over previous. Iron studies have been fairly stable, although ferritin has decreased somewhat, today at 16. Will repeat CBC and iron studies at the end of August 2018. She last received Injectafer in December 2016. Gastrointestinal workup was negative. Celiac panel was negative. She is unable to tolerate oral iron. 2. B12 deficiency. Initial B12 level was 154. She continues on B12 1000 mcg every month, next due on 08/21/18. 3. Fatigue. We discussed the importance of trying to stay as active as possible. Will continue to monitor lab trends. She is grateful that her hemoglobin today is stable at 12.7. 4. Type 2 diabetes. Continue treatment. She sees Dr. Caputo for this. 5. Follow up for monthly B12. 6. Repeat CBC and iron studies at the end of August with her B12 injection. 7. Lab 11/14/18. 8. Follow up with Dr. Cheng on 11/15/18 for continued care. DEBO
== END ==
LOC: SPU 05-11 06:51 → ONC 08:37
PROVIDERS: ATTEND Internal Medicine Hematology
DX: D50.9 Iron deficiency anemia, unspecified (principal); D51.9 Vitamin B12 deficiency anemia, unspecified; I10 Essential (primary) hypertension; E11.9 Type 2 diabetes mellitus without complications; Z79.82 Long term (current) use of aspirin; Z79.899 Other long term (current) drug therapy
CPT/HCPCS: 36415; 82728; 83540; 83550; 85025; 96372; G0463; J3420; 99212

== ENCOUNTER 2018-08-17 14:00 | Outpatient (RCR) | payer MEDICARE, OTHER ==
[2018-06-08 18:30] VITALS: BP 84/50
[2018-06-08 18:31] VITALS: BP 84/52
--- NOTE | 2018-06-11 10:56 | CARDIAC REHAB PLAN OF CARE ---
Physician: MD Kerri Patient is being seen: Kev Jackson Medical Diagnosis: TAVR Date of Initial Evaluation: 11/16/2017 SHORT TERM GOALS Short Term Goals Due Date: 07/09/18 Patient Assessment: Patient is a 77 y/o female returning to cardiac rehab to complete her phase II program. Patient had a TAVR procedure on October 10, 2017. Exercise Assessment: Patient completed the 6 minute walk test with 1275 feet, at 2.4 mph, zero stops, SPO2 at 87-93% on room air, and the cardiac care unit nurse showed a NSR without ectopy and rates of 83-90. Patient will be able to resume her phase II program in the moderate intensity level of 3.0-6.0 MET level, and include weight resistance exercise. Exercise Plan: Goals: Our goals are to help promote healthy activity level most days of the week. Patient goals for cardiac rehab will be to achieve 40-45 minutes of moderate level cardio exercise and to work towards intervals of high intensity levels. Patient will walk and also include recumbent bike exercise. Patient will also be encouraged to move and exercise on the off days from cardiac rehab to gain at least 150 minutes of moderate level intensity cardio in a week. Patient will also include weight resistance exercise at cardiac rehab and be encouraged to also include this during off day workouts. Exercise Prescription: Mode: Recumbent stationary bike and walking the track and on a treadmill. Frequency: 3 days/week (MWF) Duration: Patient will start exercising for 35 minutes on average per session Intensity: THR 85-100 bpm; METs 3.5 Education: Education will be aimed towards the importance of gradual progression for increasing overall physical fitness as well as increasing intensity during leisure time activities at home. Exercise Reassessment (Date: 07/08/2018 ) Exercise Discharge/Follow-Up (Date: ): Nutrition Assessment: Patient reports dietary choices and habits that are poor. Patients description of daily intake includes coffee, soda pop, very little water intake, and foods that are sugar and refined carbohydrates. Overall calorie intake is 80% poor nutritional value of her total calories. Nutrition Plan: Goals: Our goals are to maintain healthy habits and help educate the patient on the importance of healthy fats, healthy proteins, and whole grains as part of a well-rounded diet. To eliminate soda pop and include more water, and some healthy dairy into her diet. Intervention: Intervention will include providing education and frequent conversation about healthy dietary changes. Education: Education will focus on healthy recipes and nutritional guideline information Nutrition Reassessment (Date: 07/08/2018 ): Nutrition Discharge/Follow-Up (Date: ): Psychosocial Assessment: The Hospital Anxiety and Depression Scale (HADS) reveals patient in the moderate level for depression and in the normal range for anxiety. Patients medical history indicates depression and seems to be able to manage it with medication. Psychosocial Plan: Goals: Our goals are help the patient become self-aware of triggers for depression and encourage healthy habits to help avoid depression and down moments. Intervention: Our intervention will first start with regular conversations to understand what becomes a depressing, down time frame for her and help to promote exercise habits and goals, as well as diet improvement to help stabilize ups and downs of blood sugar levels that are part of her current diet. Education: Education will focus on off day habits of movement (exercise) that would occupy the times of feeling down and not motivated to do anything. If these times of exercise might lead to also a positive social interaction that would also greatly help. To also include healthy eating habits to help with overall health but also to avoid big swings in blood sugar levels. Overall improvement health will also help to provide momentum of feeling good, staying motivated, and reaching goals. All of this helps maintain a positive outlook and less depressing moments. Psychosocial Reassessment (Date: 07/08/2018 ): Psychosocial Discharge/Follow-Up (Date: ): DEBO
[2018-06-11 13:19] VITALS: BP 84/56
[2018-06-11 13:20] VITALS: BP 102/50
[2018-06-13 13:36] VITALS: BP 110/60
[2018-06-13 13:37] VITALS: BP 100/60
[2018-06-18 13:26] VITALS: BP_SYST 82; BP_SYST 90; BP_DIAS 50
[2018-06-20 13:15] VITALS: BP 90/50
[2018-06-20 13:16] VITALS: BP 90/54
[2018-06-22 17:09] VITALS: BP 110/70
[2018-06-22 17:10] VITALS: BP 106/60
[2018-06-25 17:06] VITALS: BP 82/54
[2018-06-25 17:07] VITALS: BP 98/56
[2018-06-27 17:02] VITALS: BP 108/58
[2018-06-27 17:03] VITALS: BP 118/60
[2018-06-29 15:34] VITALS: BP_SYST 108; BP_SYST 118; BP_DIAS 50; BP_DIAS 60
[2018-07-02 15:49] VITALS: BP_SYST 112; BP_DIAS 62; BP_DIAS 66
[2018-07-04 15:35] VITALS: BP_SYST 112; BP_SYST 128; BP_DIAS 60; BP_DIAS 64
[2018-07-06 17:03] VITALS: BP 102/52
[2018-07-06 17:04] VITALS: BP 90/50
[2018-07-11 15:50] VITALS: BP 114/66
[2018-07-11 15:51] VITALS: BP 108/58
[2018-07-13 15:58] VITALS: BP 124/70
[2018-07-13 15:59] VITALS: BP 104/62
[2018-07-20 17:11] VITALS: BP 104/62
[2018-07-20 17:12] VITALS: BP 102/60
--- NOTE | 2018-07-20 17:48 | CARDIAC REHAB PLAN OF CARE ---
Physician: Kerri COOPER Patient is being seen: Kev Jackson Medical Diagnosis: TAVR Date of Initial Evaluation: June 08, 2018 Short Term Goals Due Date: 08/20/18 Patient Assessment: Patient is a 77 y/o female returning to cardiac rehab to complete her phase II program. Patient had a TAVR procedure on October 10, 2017. Exercise Assessment: Patient completed the 6 minute walk test with 1275 feet, at 2.4 mph, zero stops, SPO2 at 87-93% on room air, and the airborne missions systems showed a NSR without ectopy and rates of 83-90. Patient will be able to resume her phase II program in the moderate intensity level of 3.0-6.0 MET level, and include weight resistance exercise. Exercise Plan: Goals: Our goals are to help promote healthy activity level most days of the week. Patient goals for cardiac rehab will be to achieve 40-45 minutes of moderate level cardio exercise and to work towards intervals of high intensity levels. Patient will walk and also include recumbent bike exercise. Patient will also be encouraged to move and exercise on the off days from cardiac rehab to gain at least 150 minutes of moderate level intensity cardio in a week. Patient will also include weight resistance exercise at cardiac rehab and be encouraged to also include this during off day workouts. Exercise Prescription: Mode: Recumbent stationary bike and walking the track and on a treadmill. Frequency: 3 days/week (MWF) Duration: Patient will start exercising for 35 minutes on average per session Intensity: THR 85-100 bpm; METs 3.5 Education: Education will be aimed towards the importance of gradual progression for increasing overall physical fitness as well as increasing intensity during leisure time activities at home. Exercise Reassessment (Date: 07/20/2018): Patient has made 22 visits of her 36 visit phase II program and completes 30-35 minutes on the recumbent bike, and walks 5-15 laps on the track, followed by weight resistance with 3 pound dumbbells. Patient will increase duration and intensity with coaching from the CR staff. Exercise Discharge/Follow-Up (Date: ): Nutrition Assessment: Patient reports dietary choices and habits that are poor. Patients description of daily intake includes coffee, soda pop, very little water intake, and foods that are sugar and refined carbohydrates. Overall calorie intake is 80% poor nutritional value of her total calories. Nutrition Plan: Goals: Our goals are to maintain healthy habits and help educate the patient on the importance of healthy fats, healthy proteins, and whole grains as part of a well-rounded diet. To eliminate soda pop and include more water, and some healthy dairy into her diet. Intervention: Intervention will include providing education and frequent conversation about healthy dietary changes. Education: Education will focus on healthy recipes and nutritional guideline information Nutrition Reassessment (Date: 07/20/2018): The patient reports small adjustments to diet with nearly 100% elimination of soda pop. Patient lives alone and does not like to cook and will either eat some type of convience processed food or go get fast food. Patients required calorie intake is mostly unhealthy foods. Nutrition Discharge/Follow-Up (Date: ): Psychosocial Assessment: The Hospital Anxiety and Depression Scale (HADS) reveals patient in the moderate level for depression and in the normal range for anxiety. Patients medical history indicates depression and seems to be able to manage it with medication. Psychosocial Plan: Goals: Our goals are help the patient become self-aware of triggers for depression and encourage healthy habits to help avoid depression and down moments. Intervention: Our intervention will first start with regular conversations to understand what becomes a depressing, down time frame for her and help to promote exercise habits and goals, as well as diet improvement to help stabilize ups and downs of blood sugar levels that are part of her current diet. Education: Education will focus on off day habits of movement (exercise) that would occupy the times of feeling down and not motivated to do anything. If these times of exercise might lead to also a positive social interaction that would also greatly help. To also include healthy eating habits to help with overall health but also to avoid big swings in blood sugar levels. Overall improvement health will also help to provide momentum of feeling good, staying motivated, and reaching goals. All of this helps maintain a positive outlook and less depressing moments. Psychosocial Reassessment (Date: 07/20/2018):Patient just has a hard time getting into a regular schedule and routine that would include consistent exercise and healthy foods. Patients social routine is also lacking and while she worries about her health it seems difficult to teach her these important steps into establishing a regular healthy routine. Psychosocial Discharge/Follow-Up (Date: ): Physician Signature: Date: MTDD
[2018-07-23 15:32] VITALS: BP 110/60
[2018-07-23 15:33] VITALS: BP 118/66
[2018-07-25 16:46] VITALS: BP 108/60
[2018-07-25 16:47] VITALS: BP 102/52
[2018-07-27 15:17] VITALS: BP 130/64
[2018-07-27 15:18] VITALS: BP 124/62
[2018-08-01 15:23] VITALS: BP 128/60
[2018-08-01 15:24] VITALS: BP 128/70
[2018-08-03 16:30] VITALS: BP 122/62
[2018-08-03 16:31] VITALS: BP 108/64
[2018-08-06 15:49] VITALS: BP 117/65
[2018-08-06 15:50] VITALS: BP 108/64
[2018-08-10 15:15] VITALS: BP 128/74
[2018-08-10 15:16] VITALS: BP 126/70
[2018-08-15 15:46] VITALS: BP 126/70
[2018-08-15 15:47] VITALS: BP 108/62
[~2018-08-17 14:00] MED LIST changes: -CYANOCOBALAMIN 1000MCG/ML VIAL IM ONLY ONE
[2018-08-18 11:46] VITALS: BP 132/68
[2018-08-18 11:48] VITALS: BP 122/62
== END 2018-08-17 18:00 | disposition home or self-care (01) ==
LOC: CARD 14:00
PROVIDERS: ATTEND Internal Medicine Cardiovascular Disease
DX: Z95.2 Presence of prosthetic heart valve (principal)
CPT/HCPCS: 93798

== ENCOUNTER → 2018-10-12 | Outpatient (CLI) | payer MEDICARE, OTHER ==
[~2018-10-12] MED LIST changes: +LOSA25TA57 PO; -ROS10 PO; +ROSU10TA PO; -ROSU20TA23 PO; +ROSU20TA24 PO
[2018-10-12 11:55] LABS: PLATELET COUNT, AUTOMATED 222 K/uL (150-450)
--- NOTE | 2018-10-14 10:05 | EKG ---
FACILITY: [facility] PATIENT NAME: FLACO WATSON : [id number] MR: [id number] V: [id number] EXAM DATE: ORDERING PHYSICIAN: ROHAN COKER TECHNOLOGIST: COREY Yeager Reason : Blood Pressure : / mmHG Vent. Rate : 065 BPM Atrial Rate : 065 BPM P-R Int : 150 ms QRS Dur : 088 ms QT Int : 426 ms P-R-T Axes : 076 075 090 degrees QTc Int : 443 ms Normal sinus rhythm Normal ECG No previous ECGs available Confirmed by ABDIRAHMAN DUVAL ([id number]) on 10/16/2018 10:08:25 AM Referred By: Confirmed By:ABDIRAHMAN DUVAL
== END ==
LOC: LAB 11:39
PROVIDERS: ATTEND Nurse Practitioner Primary Care
DX: R53.81 Other malaise (principal)
CPT/HCPCS: 36415; 82040; 82247; 82310; 82374; 82435; 82565; 82947; 84075; 84132; 84155; 84295; 84450; 84460; 84484; 84520; 85025

== ENCOUNTER → 2018-10-22 | Outpatient (CLI) | payer MEDICARE, OTHER | LOC: LAB 09:37 | PROVIDERS: ATTEND Internal Medicine | DX: I35.0 Nonrheumatic aortic (valve) stenosis (principal); Z95.2 Presence of prosthetic heart valve; I51.9 Heart disease, unspecified; I10 Essential (primary) hypertension; R29.6 Repeated falls; R42 Dizziness and giddiness; R53.1 Weakness | CPT/HCPCS: 36415; 82040; 82247; 82310; 82374; 82435; 82565; 82947; 84075; 84132; 84155; 84295; 84450; 84460; 84520; 85027 ==

== ENCOUNTER → 2018-11-08 | Outpatient (CLI) | payer MEDICARE, OTHER ==
[~2018-11-08] MED LIST changes: -DIPH0.5D12 IM; +DIPH0.5S2 IM
[2018-11-08 09:14] LABS: PLATELET COUNT, AUTOMATED 252 K/uL (150-450)
[2018-11-08 09:37] LABS: LDL CHOLESTEROL 57 mg/dl
== END ==
LOC: LAB 09:03
PROVIDERS: ATTEND Emergency Medicine
DX: I10 Essential (primary) hypertension (principal); E78.5 Hyperlipidemia, unspecified; E11.9 Type 2 diabetes mellitus without complications; E55.9 Vitamin D deficiency, unspecified; D51.9 Vitamin B12 deficiency anemia, unspecified
CPT/HCPCS: 36415; 82040; 82247; 82306; 82310; 82374; 82435; 82465; 82565; 82607; 82947; 83036; 83718; 84075; 84132; 84155; 84295; 84450; 84460; 84478; 84520; 85007; 85027

== ENCOUNTER 2018-11-15 08:17 | Outpatient (RCR) | payer MEDICARE, OTHER ==
[2018-08-21 09:14] VITALS: BP 104/61
[2018-09-24 08:59] VITALS: BP 121/77
[2018-10-22 09:08] VITALS: BP 116/77
[~2018-11-15 08:17] MED LIST changes: +CYANOCOBALAMIN 1000MCG/ML VIAL SUBQ ONE
[2018-11-15 08:37] VITALS: BP 119/56
[2018-11-15 08:41] LABS: PLATELET COUNT, AUTOMATED 243 K/uL (150-450)
[2018-11-15] MEDS ORDERED: CYANOCOBALAMIN 1000MCG/ML VIAL IM ONLY PRN (10:05)
--- NOTE | 2018-11-15 10:50 | ONCOLOGY FOLLOW UP NOTE ---
EVENT DATE: November 15, 2018 DIAGNOSES 1. Iron deficiency anemia. 2. Vitamin B12 deficiency. 3. Hypertension. 4. Type 2 diabetes. CHIEF COMPLAINT The patient is here today for followup of her anemia due to iron deficiency and vitamin B12 deficiency. HEMATOLOGY HISTORY Patient is a 78-year-old female who was recently diagnosed with anemia. She has been seen by Dr. Caputo who did a thorough workup for her anemia, which showed low vitamin B12 at 154 and iron deficiency anemia with serum ferritin 10, serum iron 23, TIBC 454 and iron saturation 5.1%. Her serum folate was normal at 20.4. Her CBC showed a white count of 5.1, hemoglobin 10.1, hematocrit 31.1, platelets 338,000 and MCV 78.8. Patient has been referred to Dr. Chavez, who did a colonoscopy and EGD, done on November 30, 2016. Her EGD and colonoscopy did not reveal any polyps or a bleeding source in the gastrointestinal tract. 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 Duodenal biopsy and GE junction biopsy without diagnostic abnormality. Patient started treatment with oral iron and oral vitamin B12 supplement, but since she started on oral iron, although she is using only one pill a day, the patient has had about four bowel movements daily since then. Repeat CBC showed white count 5.2, hemoglobin 10.7, hematocrit 33.3, platelets 374,000. Anti-intrinsic factor antibody and antiparietal cell antibody both came back negative. Celiac disease antigen screen came back normal. HISTORY OF PRESENT ILLNESS Patient is here today for followup of her anemia due to iron deficiency and vitamin B12 deficiency. She is doing fine currently except she has aches in her legs sometimes. She has mild fatigue occasionally but she fell down at home and she is under investigation by Dr. Caputo currently. PAST MEDICAL HISTORY 1. Hyperlipidemia. 2. Hypertension. 3. Aortic stenosis. 4. Osteopenia. 5. Anxiety/depression. 6. Type 2 diabetes. PAST SURGICAL HISTORY 1. She had hysterectomy, but her ovaries are intact. 2. She had colon cancer for pre-cancer polyps in 1940s. 3. She had cholecystectomy. FAMILY HISTORY Mother had multiple myeloma. SOCIAL HISTORY Patient is with two children. She is retired from director database, working at the [employer]. Denies any abuse of tobacco, alcohol or drugs. CURRENT MEDICATIONS 1. Rosuvastatin calcium 10 mg two tablets daily. 2. Aspirin 81 mg daily. 3. Escitalopram 10 mg daily. 4. Diovan 160 mg daily. 5. Janumet one tablet twice daily. 6. Combigan eyedrops one drop twice daily. ALLERGIES No known drug allergies. REVIEW OF SYSTEMS CONSTITUTIONAL: No appetite or weight change. No fever, chills or sweating. No recent infection. HEENT: Ears: No tinnitus or hearing problem. Nose: No nasal discharge or epistaxis. Throat: No sore throat or mouth ulcers. Eyes: No diplopia or visual changes. RESPIRATORY: No shortness of breath. The patient has some. No expectoration or hemoptysis. CARDIOVASCULAR: No chest pain, orthopnea, or paroxysmal nocturnal dyspnea (PND). No edema. No palpitations. GASTROINTESTINAL: She has diarrhea. GENITOURINARY: No hematuria or dysuria. MUSCULOSKELETAL: She has aches in her legs. NEUROLOGICAL: She had fall in the home recently. HEMATOLOGIC/LYMPHATIC: She has mild fatigue. SKIN: No skin rash or lumps. PSYCHIATRIC: No anxiety or depression. PHYSICAL EXAMINATION GENERAL: Looks stable. Well-developed, well-nourished, and in no acute distress. VITAL SIGNS: Blood pressure 111/55, pulse 74 per minute, respirations 16 per minute, temperature 97.5, pulse ox 95% on room air. HEENT: Head: Atraumatic. No sinus tenderness to palpation. Eyes: No icterus or conjunctivitis. Mouth and throat: No oral thrush or mucositis. NECK: Supple. No cervical or supraclavicular lymphadenopathy. LUNGS: Clear to auscultation and percussion bilaterally. HEART: Regular rate and rhythm. No gallops, murmurs, clicks or rubs. ABDOMEN: Soft and lax. No tenderness. No hepatosplenomegaly. No masses. EXTREMITIES: No cyanosis, clubbing or edema. LYMPHATICS: No peripheral lymphadenopathy. NEUROLOGICAL: Conscious, alert and oriented times three. No focal motor or sensory deficits. PSYCHIATRIC: Mood and affect appear normal. SKIN: No skin rash, bruise or purpuric eruption. DIAGNOSTIC DATA CBC showed white count of 6.27, hemoglobin 12.5, hematocrit 56.9, platelets 243,000. Iron studies are still pending. ASSESSMENT 1. Iron deficiency anemia with normal colonoscopy and EGD without bleeding source. Celiac panel came back negative. Patient was unable to tolerate oral iron pills so she received Injectafer 750 mg weekly for two weeks in December 2016. Her iron deficiency resolved. Her current iron studies are still pending but her hemoglobin is normal and stable at 12.5 g/dL. I am planning to see her again in four months from now with CBC, iron studies with ferritin and vitamin B12 level. If the patient would show deterioration off her iron studies, we will plan to supplement her with iron again. I explained that to the patient. She is agreeable to the plan of management. 2. Vitamin B12 deficiency. Initial vitamin B12 level was 154. I am planning to continue vitamin B12 shots once a month at 1,000 mcg. 2. Hypertension, on treatment. 3. Type 2 diabetes, on treatment. PLAN 1. Vitamin B12 1000 mg every month. 2. Patient to return in four months with CBC, iron studies with ferritin and vitamin B12 level. 3. Patient is to contact us for any new concern or complaints. DEBO
== END 2018-11-18 ==
LOC: SPU 08:17
PROVIDERS: ATTEND Internal Medicine Hematology
DX: D50.9 Iron deficiency anemia, unspecified (principal); D51.9 Vitamin B12 deficiency anemia, unspecified; I10 Essential (primary) hypertension; E11.9 Type 2 diabetes mellitus without complications; Z79.82 Long term (current) use of aspirin; Z79.899 Other long term (current) drug therapy
CPT/HCPCS: 36415; 82728; 83540; 83550; 85025; 96372; G0463; J3420; 82040; 82247; 82310; 82374; 82435; 82565; 82947; 84075; 84132; 84155; 84295; 84450; 84460; 84520; 85027; 99212

== ENCOUNTER → 2018-11-16 | Outpatient (CLI) | payer MEDICARE, OTHER ==
[~2018-11-16] MED LIST changes: +CHOL200022 PO; -CYANOCOBALAMIN 1000MCG/ML VIAL SUBQ ONE
--- NOTE | 2018-11-16 10:35 | RADIOLOGY IMAGING REPORT ---
FACILITY: [facility] PATIENT NAME: Louann Quigley : 1940 MR: [id number] V: [id number] EXAM DATE: ORDERING PHYSICIAN: PAULINO RAMOS TECHNOLOGIST: Location: [facility] Patient: Louann Quigley : 1940 Visit/Account:[id number] Date of Sevice: 11/16/2018 EXAMINATION: Aorta ultrasound with duplex Doppler evaluation HISTORY: Buttocks pain COMPARISON: None. FINDINGS: Suprarenal abdominal aorta: 1.7 x 1.7 cm AP and transverse dimensions Superior infrarenal abdominal aorta: 1.4 x 1.5 cm AP and transverse dimensions Mid infrarenal abdominal aorta: 1.2 x 1.3 cm AP and transverse dimensions Inferior infrarenal abdominal aorta: 1.4 x 1.4 cm AP and transverse dimensions Proximal common iliac artery diameter: Left nine mm; right nine mm Aorta wall: Negative. Aorta and proximal common iliac artery are patent by duplex Doppler ultrasound. IMPRESSION: No demonstration of an abdominal aortic aneurysm Report Dictated By: Shelia Shetty MD at 11/16/2018 10:29 AM Report E-Signed By: Shelia Shetty MD at 11/16/2018 10:30 AM WSN:[email or web address]
--- NOTE | 2018-11-16 12:34 | RADIOLOGY IMAGING REPORT ---
FACILITY: [facility] PATIENT NAME: Louann Quigley : 1940 MR: [id number] V: [id number] EXAM DATE: ORDERING PHYSICIAN: PAULINO RAMOS TECHNOLOGIST: Location: [facility] Patient: Louann Quigley : 1940 Visit/Account:[id number] Date of Sevice: 11/16/2018 Exam type: HIPS BILATERAL History: Biltaeral buttock and thigh pain Comparison: None. Findings: AP view the pelvis and abducted views of both hips demonstrates mild joint space narrowing at the hip joints bilaterally in symmetric fashion. Soft tissue calcification projects just superior and later al to the greater trochanter on the right. There is no evidence of acute fractures or dislocations. Extensive vascular calcifications are present in the upper thighs. Vascular calcifications also not ed in the pelvis. There are surgical clips in the right midabdomen IMPRESSION: 1. Mild degenerative changes of both hip joints although no evidence of acute fracture dislocation Extensive vascular calcifications Report Dictated By: Shelia Shetty MD at 11/16/2018 12:29 PM Report E-Signed By: Shelia Shetty MD at 11/16/2018 12:31 PM WSN:[email or web address]
== END ==
LOC: US 01:20
PROVIDERS: ATTEND Emergency Medicine
DX: M16.0 Bilateral primary osteoarthritis of hip (principal); I25.10 Atherosclerotic heart disease of native coronary artery without angina pectoris
CPT/HCPCS: 73522; 93979

== ENCOUNTER → 2018-12-10 | Outpatient (CLI) | payer MEDICARE, OTHER | LOC: LAB 08:57 | PROVIDERS: ATTEND Emergency Medicine | DX: I10 Essential (primary) hypertension (principal) | CPT/HCPCS: 36415; 84443 ==

== ENCOUNTER → 2019-03-06 | Outpatient (CLI) | payer MEDICARE, OTHER | LOC: LAB 09:43 | PROVIDERS: ATTEND Emergency Medicine | DX: E11.9 Type 2 diabetes mellitus without complications (principal) | CPT/HCPCS: 36415; 83036 ==

== ENCOUNTER 2019-03-11 09:15 | Outpatient (RCR) | payer MEDICARE, OTHER ==
[2018-12-13 08:44] VITALS: BP 116/66
[2019-01-10 09:34] VITALS: BP 106/78
[2019-02-07] MEDS: CYANOCOBALAMIN 1000MCG/ML VIAL IM ONLY PRN (10:10)
[2019-02-07 15:42] VITALS: BP 105/62
[~2019-03-11 09:15] MED LIST changes: +CYANOCOBALAMIN 1000MCG/ML VIAL IM ONLY ONE
[2019-03-11] MEDS: CYANOCOBALAMIN 1000MCG/ML VIAL IM ONLY PRN (09:26)
[2019-03-11 09:31] LABS: PLATELET COUNT, AUTOMATED 357 K/uL (150-450)
== END 2019-03-12 ==
LOC: SPU 09:15
PROVIDERS: ATTEND Internal Medicine Hematology
DX: D50.9 Iron deficiency anemia, unspecified (principal); D51.9 Vitamin B12 deficiency anemia, unspecified
CPT/HCPCS: 36415; 82607; 82728; 83540; 83550; 85025; 96372; J3420